=== PATIENT | female | born 1960 | race African-American/Black ===

== ENCOUNTER 2017-05-18 15:59 | Emergency (ER) | payer MEDICARE, MEDICAID ==
[~2017-05-18] VITALS: Ht 157.5 cm; Wt 87.0 kg
[~2017-05-18 15:59] MED LIST: ALBU4TAB6 PO; HYDR-523 PO; P50 PO
[2017-05-18] MEDS ORDERED: HYDR25TA PO (16:10)
[2017-05-18] MEDS ORDERED: METHYLPREDNISOLONE SOD SUCC 125 MG/2 ML VIAL IV STA (18:27)
[2017-05-18] MEDS ORDERED: ALBUTEROL (0.083%) 2.5MG/3ML NEB HHN STA (18:27)
[2017-05-18] MEDS ORDERED: SODIUM CHLORIDE 0.9% 1,000 ML IV ONE (18:27)
[2017-05-18] MEDS ORDERED: IPRATROPIUM BROMIDE (0.02%) 0.5MG/2.5ML NEB HHN STA (18:27)
[2017-05-18] MEDS ORDERED: MAGNESIUM 2 G PREMIX 50 ML IV ONE (18:30)
[2017-05-18] MEDS ORDERED: NITROGLYCERIN OINT 1GM/INCH UDPKT TD ONE (18:30)
[2017-05-18] MEDS ORDERED: ASPIRIN 81MG TABLET PO ONE (18:30)
[2017-05-18] MEDS ORDERED: LEVOFLOXACIN 750MG PREMIX 150 ML IV ONE (18:30)
[2017-05-18] MEDS ORDERED: FAMOTIDINE 20MG/2ML VIAL IV ONE (18:45)
[2017-05-18] MEDS ORDERED: DIPHENHYDRAMINE 50MG/ML VIAL IV ONE (18:45)
[2017-05-18 18:50] LABS: BG BASE EXCESS 1.2 mmol/L (-2.0-2.0); BG CARBOXYHEMOGLOBIN 0.4 % (0.5-1.5); BG DEOXYHEMOGLOBIN 2.7 % (0.0-5.0); BG FRACTION INSPIRED OXYGEN 21; BG HCO3 ACT 24.7 mmol/L (22.0-26.0); BG METHEMOGLOBIN 0.2 % (0.0-1.5); BG OXYGEN SATURATION 97.3 % (92.0-98.5); BG OXYHEMOGLOBIN 96.7 % (94.0-97.0); BG PCO2 35.3 mmHg (35.0-45.0); BG PH 7.462 (7.350-7.450); BG PO2 97.3 mmHg (75.0-100.0); BG SAMPLE SITE RIGHT RADIAL; BG TOTAL HEMOGLOBIN 13.3 g/dL (12.0-18.0); BG VENT MODE ROOM AIR
[2017-05-18] MEDS ORDERED: ONDANSETRON 4MG ODT PO ONE (21:00)
[2017-05-18] MEDS ORDERED: HYDROCODONE/ACETAMINOPHEN 10/325MG TABLET PO ONE (21:00)
[2017-05-18 21:01] LABS: BASOPHILS % 0.5 % (0.0-2.0); EOSINOPHILS % 2.1 % (0.0-5.0); HEMATOCRIT. 36.9 % (36.0-48.0); HEMOGLOBIN. 12.2 g/dL (12.0-16.0); LYMPHOCYTES % 31.5 % (20.0-50.0); MEAN CORPUSCULAR HEMOGLOBIN 28.1 pg (28.0-32.0); MEAN CORPUSCULAR VOLUME 85.3 fL (81.0-99.0); MEAN PLATELET VOLUME 7.6 fl (7.4-10.4); MONOCYTES % 9.4 % (2.0-8.0); NEUTROPHILS % 56.5 % (40.0-76.0); PLATELET 286 x1000/uL (130-400); RED BLOOD CELL COUNT 4.33 mill/uL (4.2-5.4); RED CELL DISTRIBUTION WIDTH 14.4 % (11.6-14.6)
[2017-05-18 21:08] LABS: CHLORIDE 101 mEq/L (98-107)
[2017-05-18 21:08] LABS: *AMPHETAMINES SCREEN URINE NEGATIVE (NEGATIVE); *BARBITURATES SCREEN URINE NEGATIVE (NEGATIVE); *BENZODIAZEPINES SCREEN URINE NEGATIVE (NEGATIVE); *COCAINE SCREEN URINE NEGATIVE (NEGATIVE); CANNABINOID URINE SCREEN NEGATIVE (NEGATIVE); METHADONE URINE SCREEN NEGATIVE (NEGATIVE); OPIATES URINE SCREEN NEGATIVE (NEGATIVE); PHENCYCLIDINE URINE SCREEN NEGATIVE (NEGATIVE)
[2017-05-18 21:12] LABS: ETHANOL BLOOD < 10 mg/dL
[2017-05-18 21:16] LABS: TROPONIN I < 0.02 ng/mL (0.00-0.04)
[2017-05-18] MEDS ORDERED: POTASSIUM BICARB/CIT ACID 25 MEQ TABLET.EFF PO SCH (21:30)
[2017-05-19 01:40] VITALS: BP 120/70
== END 2017-05-19 02:04 | disposition home or self-care (01) ==
LOC: ER 16:35
DX: S93.401A Sprain of unspecified ligament of right ankle, initial encounter (principal); J45.901 Unspecified asthma with (acute) exacerbation; R60.0 Localized edema; J44.9 Chronic obstructive pulmonary disease, unspecified; E11.9 Type 2 diabetes mellitus without complications; Z88.0 Allergy status to penicillin; Z88.5 Allergy status to narcotic agent; Z91.040 Latex allergy status; X58.XXXA Exposure to other specified factors, initial encounter; Y93.89 Activity, other specified; Y92.89 Other specified places as the place of occurrence of the external cause; Y99.8 Other external cause status
CPT/HCPCS: 36415; 36600; 71045; 73610; 80053; 80305; 82375; 82805; 83605; 83880; 84484; 85025; 87040; 87086; 87804; 93005; 93971; 94640; 96365; 96367; 96375; 99285; G0482; J1200; J1956; J2930; J3475; J3490; J7030; J7611; Q0162